=== PATIENT | male | born 1990 | race African-American/Black ===

== ENCOUNTER 2023-12-06 15:57 | Emergency (ER) | payer OTHER, SELFPAY ==
[2023-12-06 15:58] VITALS: BP 141/86; PULSE 85; RESP 16; TEMP 37; O2SAT 99; BMI 26.6
--- NOTE | 2023-12-06 17:26 | EDS_ITS ---
HPI History of Present Illness Chief Complaint: Complaint Detail of Chief Complaint: Penile discharge x 2 days Informant: patient Pain Onset: Days Context: Sudden Onset Timing: Continuous Current Severity: Moderate Maximum Severity: Moderate Worsened by: Unprotected intercourse with another person who had STI Relieved by: Nothing Appearance Lesion(s): No Genital Edema: No Penile Discharge Genital Discharge Amount: Moderate Genital Discharge Color: Yellow Genital Discharge Description: Thick Genital Discharge Odor: None Urinary Symptoms Genitourinary Symptoms: Dysuria Related History Sexually: Active Unprotected Sex: Yes STD: Yes (History of chlamydia, GC and trichomonas in the past.) Epididymitis: No Bladder/Kidney Infection: No Enlarged Prostate: No Prostate Infection: No Prostate Cancer: No Narrative Narrative: Patient is a 33-year-old male. Unprotected sexual intercourse with a woman he thought was faithful. Apparently she was someone else. She was positive for ST I and trichomonas. He denies fever, chills night sweats. He denies photophobia or ocular symptoms. He denies myalgias arthralgias. He denies rash. He denies any other complaints. Prior similar symptoms: Yes Recent Illness/Hospitalization: No PFSH PFSH Medical History (Updated 12/06/23 @ 17:[address] Rohan Olson MD) STI (sexually transmitted infection) Home Medications ?Medication ?Instructions ?Recorded ?Last Taken ?Type doxycycline hyclate 100 mg tablet 100 mg PO BID #14 tabs 12/06/23 Unknown Rx metronidazole 500 mg tablet 500 mg PO Q8H #21 tabs 12/06/23 Unknown Rx Allergy/AdvReac Type Severity Reaction Status Date / Time No Known Allergies Allergy Verified 12/06/23 16:01 Social History Smoking Status: Current every day smoker tobacco type: e-cigarettes ROS ROS ED Constitutional Constitutional ED: Denies chills, fever(s) or subjective Eyes Eyes: Denies blurry vision, change in vision or other Genitourinary Genitourinary ED: Reports dysuria and other Details: Penile discharge. ; Denies hematuria or urinary frequency Musculoskeletal Musculoskeletal: Denies arthralgias or myalgias Integumentary Denies rash EXAM Physical Exam Const Vital Signs: 12/06/23 15:58 Temperature 98.6 F Temperature Source Oral Pulse Rate 85 Respiratory Rate 16 Blood Pressure 141/86 H Blood Pressure Mean 104 Pulse Ox 99 Oxygen Delivery Method Room Air Positive well nourished and well developed General Appearance ED: well developed and NAD; Negative for pallor HEENT normocephalic and atraumatic Eyes PERRL and EOMs intact bilaterally General Eye ED: Negative for pale conjunctiva or scleral icterus Neck no lymphadenopathy, supple and no JVD Resp normal respiratory effort and clear to auscultation bilaterally Cardio regular rate, regular rhythm, S1 normal heart sound, S2 normal heart sound and no murmurs GI non-tender, non-distended and no masses Palpation: soft Narrative: Testes ascended bilaterally. There is no testicular or epididymal tenderness noted. No fuentes lymphadenopathy. There is no penile lesions. Patient does have a urethral discharge. Back/Spine no CVA tenderness Neuro oriented x3 and CN's II-XII intact bilaterally Sensorium / Orientation: alert Psych Mood & Affect: depressed Skin General Skin Exam: Negative for jaundice or pallor Lesions: no lesions Rashes: no rashes MDM MDM MDM Narrative Medical decision making narrative: Patient's history and physical will obtain urine for GC and chlamydia. Will treat with Rocephin, doxycycline and metronidazole. He drank within the last 24 hours and reason for metronidazole was not started today. Treatment and Re-Evaluation Narrative: Patient was treated with Rocephin, doxycycline and metronidazole. Discharge Plan Triage Chief Complaint: Complaint Other Complaint: Male Pain/Injury ED Provider: Rohan Olson Dx/Rx/DC Orders Clinical Impression: Acute gonococcal urethritis, Exposure to trichomonas Instructions: ED STI Male Treated Prescriptions: New doxycycline hyclate 100 mg tablet 100 mg PO BID Qty: 14 0RF metronidazole 500 mg tablet 500 mg PO Q8H Qty: 21 0RF Referrals: Kristal Fritz [Non-Staff] - 1 Week if not improving Activity Restrictions/Additional Instructions: 1. Do not start the metronidazole until tomorrow and you are not to drink anything that contains alcohol while on the medicine or for 48 to 72 hours after your last dose 2. Take the doxycycline until gone 3. All your sexual partners should be informed that you have a sexually transmitted infection. 4. Use of condom decreases incidence of sexually transmitted infection. Print Language: Ukrainian Disposition Disposition: Home, Self Care
[2023-12-06] MEDS: Ceftriaxone 500 MG Vial 250 MG IM (18:02)
[2023-12-06] MEDS: Doxycycline 100 MG CAPSULE PO (18:02)
== END 2023-12-06 18:25 | disposition home or self-care (01) ==
PROVIDERS: Emergency Provider Emergency Medicine; Visit Provider Emergency Medicine
DX: A54.01 Gonococcal cystitis and urethritis, unspecified (principal); F17.290 Nicotine dependence, other tobacco product, uncomplicated
CPT/HCPCS: 87491; 87591; 96372; 99283